=== PATIENT | female | born 1950 | race Caucasian/White ===

== ENCOUNTER → 2017-05-09 | Outpatient (CLI) | payer OTHER ==
--- NOTE | 2017-05-09 11:15 | DIAGNOSTIC IMAGING REPORT ---
R SHOULDER MIN 2 VIEWS CLINICAL HISTORY: 66 years-old Female presenting with RIGHT SHOULDER INJURY 2 months ago, pain. TECHNIQUE: Frontal, transscapular Y, and axillary views of the right shoulder were obtained. COMPARISON: None. FINDINGS: Two small ovoid densities project over the proximal humeral metaphysis, likely bone islands. Additional ovoid densities inferior to the coracoid process are indeterminant and may represent loose bodies versus bone islands. Irregularity of the rotator cuff footplate at the greater tuberosity likely indicates chronic rotator cuff impingement. Glenohumeral and acromioclavicular joints congruent. No acute fracture or malalignment. Mild osteophytosis at the glenohumeral joint. Normal morphology of the acromion process.. IMPRESSION: 1. No acute osseous injury of the right shoulder. 2. Loose bodies versus bone islands in the subcoracoid region. 3. Findings suggest chronic rotator cuff impingement. 4. Mild degenerative changes of the glenohumeral joint. Electronically signed by: Dorian Walton M.D. 05/09/2017 11:14 AM Dictated Date/Time: 05/09/2017 11:11 AM
== END | disposition home or self-care (01) ==
LOC: C.RDSM 10:53
PROVIDERS: ATTEND Family Medicine
DX: M25.519 Pain in unspecified shoulder (principal)

== ENCOUNTER → 2017-10-09 | Outpatient (CLI) | payer OTHER ==
--- NOTE | 2017-10-09 08:04 | DIAGNOSTIC IMAGING REPORT ---
R UPPER EXT JOINT WITHOUT CLINICAL HISTORY: 67 years-old Female presenting with RIGHT SHOULDER PAIN, limited range of motion, ongoing pain for 6 months, history of 2 injections comp injury while lifting. TECHNIQUE: Multisequence, multiplanar MR imaging of the right shoulder was performed without the use of intravenous contrast. IV contrast: None. COMPARISON: Plain radiographs from 05/09/2017. FINDINGS: Localizer images: Unremarkable. Bone marrow: Extensive subchondral cystic change in the glenoid fossa. Cystic change also noted near the insertional footplate of the supraspinatus tendon likely indicating chronic impingement. Articular cartilage: Full-thickness cartilage loss of the glenoid fossa most pronounced centrally and at the superior aspect. The apposing articular cartilage of the humeral head demonstrates cartilage loss at the periphery, where there is osteophytosis most pronounced inferiorly. Labrum: Increased signal intensity and blunting of the posterior labrum consistent with chronic degeneration. No focal labral tear. Biceps and triceps tendons: Linear fluid signal intensity undermines a portion of the the long head of the biceps labral complex (series 10 image 9), consistent with partial tear. The remainder of the tendon is intact. Short head of the biceps tendon intact. Long head of the triceps tendon intact. Rotator cuff: Increased signal intensity of the critical zone of the supraspinatus tendon predominantly anteriorly consistent with tendinosis. There is also partial bursal surface tear suspected in the critical zone-myotendinous junction (series 10 image 10). This is less than 50% thickness. Partial undersurface tear of the insertional fibers of the infraspinatus suspected (series 10 image 13). Teres minor tendon intact. Increased signal intensity of proximal fibers of the subscapularis tendon consistent with tendinosis. Transverse ligament portion of the subscapularis tendon intact. Acromioclavicular joint: Hypertrophic degenerative changes of the acromioclavicular joint. No fluid within the joint. Flat to concave undersurface of the acromion process. Shoulder joint effusion: Small shoulder joint effusion with loose bodies evident inferior and medial to the humeral head (series 10 image 12). Loose bodies also noted in the subcoracoid recess (series 10 image 6). Trace fluid in the subacromial subdeltoid bursa. Muscle: Normal muscle bulk and muscle signal intensity. Superficial soft tissue: No subcutaneous edema. IMPRESSION: 1. Findings consistent with advanced degenerative change characteristic of osseous arthritis affecting both the glenohumeral and acromioclavicular joints. Multiple loose bodies in the glenohumeral joint, which has a small joint effusion. 2. Tendinosis of the supraspinatus and subscapularis. Additionally, partial bursal surface tear of the supraspinatus and partial undersurface tear of the infraspinatus as above. 3. Degenerative changes of the labrum as above. Electronically signed by: Dorian Walton M.D. 10/09/2017 8:03 AM Dictated Date/Time: 10/09/2017 7:47 AM
== END | disposition home or self-care (01) ==
LOC: C.MRIBC 06:45
PROVIDERS: ATTEND Orthopaedic Surgery Sports Medicine
DX: M75.41 Impingement syndrome of right shoulder (principal); M19.011 Primary osteoarthritis, right shoulder; M24.011 Loose body in right shoulder; M25.411 Effusion, right shoulder; M75.81 Other shoulder lesions, right shoulder

== ENCOUNTER 2023-01-14 09:01 | Observation (INO) ==
--- NOTE | 2022-12-23 14:56 | PAT Medication Instructions ---
Medication Instructions Date of Service December 23, 2022 Home Medications Medication Instructions Recorded azelastine 137 mcg (0.1 %) nasal 2 spray intranasal BID PRN itching 12/11/20 spray aerosol #30 mL sumatriptan succinate 50 mg tablet (Imitrex) 1 dose PO UD PRN Migraine Headache alendronate 70 mg tablet 70 mg PO .COMPLEX ascorbic acid (vitamin C) 1 dose PO DAILY PRN Cold Symptoms fluticasone propionate 50 mcg/actuation nasal spray,suspension 1 spray intranasal BID zinc gluconate-vitamin C [zinc] 1 dose PO DAILY PRN Cold Symptoms azelastine 137 mcg (0.1 %) nasal spray aerosol 2 spray intranasal BID PRN itc reid cetirizine 10 mg tablet 10 mg PO DAILY PRN Allergy Symptoms Continue as directed sumatriptan succinate 50 mg tablet (Imitrex) 1 dose PO UD PRN Migraine Headache (if needed) alendronate 70 mg tablet 70 mg PO .COMPLEX (just do not take on morning of surgery) DO NOT take the morning of surgery ascorbic acid (vitamin C) 1 dose PO DAILY PRN Cold Symptoms (if needed) zinc gluconate-vitamin C [zinc] 1 dose PO DAILY PRN Cold Symptoms cetirizine 10 mg tablet 10 mg PO DAILY PRN Allergy Symptoms Take morning of surgery With a small sip of water, OTHERWISE NOTHING TO EAT OR DRINK AFTER MIDNIGHT: fluticasone propionate 50 mcg/actuation nasal spray,suspension 1 spray intranasal BID azelastine 137 mcg (0.1 %) nasal spray aerosol 2 spray intranasal BID PRN itching (if needed) Take evening before surgery ascorbic acid (vitamin C) 1 dose PO DAILY PRN Cold Symptoms (if needed) fluticasone propionate 50 mcg/actuation nasal spray,suspension 1 spray intranasal BID zinc gluconate-vitamin C [zinc] 1 dose PO DAILY PRN Cold Symptoms (if needed) azelastine 137 mcg (0.1 %) nasal spray aerosol 2 spray intranasal BID PRN itching (if needed) cetirizine 10 mg tablet 10 mg PO DAILY PRN Allergy Symptoms (if needed) Other Notes If you have any questions please call us at [phone] or [phone] or [phone] or [phone]
--- NOTE | 2022-12-30 11:02 | Anesthesiology Consultation ---
Date of Service December 30, 2022 Assessment & Plan (1) Encounter for pre-operative examination: Chart Review Chart Review: Acceptable Risk for Surgery (pending response from PCP re: CXR results ) and Patient seen in Pre Admission Testing - Please send note to PCP re: abnormal chest x ray- need response (Dr. Yuko Davila) Pt currently scheduled as 23 hours observation. If surgeon decides to change patient to Same Day Joint, patient would be acceptable risk for ALISHA, pending patient is motivated, has good support and surgeon's office completes [facility] Day [facility] Program preop requirements. Per PAT appt on 12/30/22, no recent illness/disease exposures, illness related symptoms, or recent illness/disease positive tests. Will leave to surgeon's discretion if preop Covid testing needed Right shoulder arthroscopy, biceps tenotomy, subacromial decompression 04/03/18= Done under [facility] with LMA #4. Atraumatic attempt x 1 Teaching & Discussion Pre-Anesthesia Teaching/Discussion Notes: Instructed NPO after midnight before surgery,except medications with 15 cc of water. Medication instructions provided according to the PAT guidelines. History Surgery Operation Date: 01/14/23 10:40 Proposed Procedures p Right Total Hip Arthroplasty - Al Helms MD Height/Weight Height: 4 ft 11 in Weight: 43.1 kg Allergies Allergy/AdvReac Type Severity Reaction Status Date / Time No Known Drug Allergies Allergy Unknown Verified 12/23/22 10:05 Medications Home Medications Medication Instructions Recorded Confirmed Last Taken sumatriptan succinate 50 mg tablet 1 dose PO UD PRN Migraine Headache 03/19/18 12/23/22 Unknown (Imitrex) alendronate 70 mg tablet 70 mg PO .COMPLEX 05/05/20 12/23/22 Unknown ascorbic acid (vitamin C) 1 dose PO DAILY PRN Cold Symptoms 05/05/20 12/23/22 Unknown fluticasone propionate 50 1 spray intranasal BID 05/05/20 12/23/22 Unknown mcg/actuation nasal spray,suspension zinc gluconate-vitamin C [zinc] 1 dose PO DAILY PRN Cold Symptoms 05/05/20 12/23/22 Unknown azelastine 137 mcg (0.1 %) nasal 2 spray intranasal BID PRN itching 12/11/20 12/23/22 Unknown spray aerosol #30 mL cetirizine 10 mg tablet 10 mg PO DAILY PRN Allergy Symptoms 07/23/22 12/23/22 Unknown Past Medical History Medical History Osteoporosis Bilateral hip joint arthritis Osteoarthritis Migraine Exercise / Class Metabolic Activity II 4-5 Yardwork/Stairs/Walk up hill (one flight of stairs- no chest pain or SOB ) Past Family History Family History Father Family hx of colon cancer Mother Hearing loss Heart disease Cancer Stroke Sister Hearing loss Cancer Asthma Other No family history of adverse response to anesthesia No family history of allergies No family history of bleeding disorder Denies family history of Hypertension Past Surgical History Surgical History History of knee surgery Waters's cysts History of repair of rotator cuff RIGHT History of appendectomy History of colonoscopy History of tonsillectomy Past Anesthesia History No Hx of Anesthesia Complications (with exception to ether- severe PONV ) and No Family Hx of Anesthesia Complications History of PONV No Hx of Motion Sickness and History of PONV (only with ether ) Social History Smoking Status: Former smoker tobacco type: cigarettes Do You Dip or Chew Tobacco: No Smoking End Date: years ago Hx Alcohol Use: No Hx Substance Use: No substance use type: does not use Review of Systems - Left chest twinge - x few weeks. No triggers. Lasts seconds. Occurs once week. No SOB or nausea. No radiation. Feels related to shoulder. Discussed with Dr. Powers- symptoms are not cardiac in nature. Pt can proceed as scheduled (patient educated to call if symptoms occur again) Patient denies shortness of breath, dyspnea on exertion, reflux, cough, wheezing, palpitations. No hx of seizures, stroke, AK, apnea/snoring. No hx of blood clots or blood transfusions Physical Exam Vital Signs VITALS BP 144/75 P 77 TEMP 98.3 SP02 97% RESP 16 Constitutional no acute distress ENMT Mouth: no TMJ clicking Thyromental Distance: < 3.5 Finger Breadths (3.0) Mallampati Class: III Missing side tooth Permanent right side implant Neck + limited neck extension (mild) Respiratory normal respiratory effort; no respiratory distress Auscultation: lungs clear to auscultation bilaterally; no wheezes Cardiovascular Rate/Rhythm: regular rate and regular rhythm Heart Sounds: no murmur Vessels: no carotid bruit Musculoskeletal Spine: no pain with cervical ROM Extremities: extremities normal to inspection Psychiatric Orientation: alert Lab Results Anesthesia Preop Results Results Anesthesia Widget: WBC 8.21 K/ul (4.8-10.8) 12/30/22 Hgb 12.9 g/dl (12.0-16.0) 12/30/22 Hct 39.0 % (37.0-47.0) 12/30/22 Plt 292 K/uL (130-400) 12/30/22 Na 139 mmol/L (136-145) 12/30/22 K 3.4 mmol/L (3.5-5.1) L 12/30/22 Cl 106 mmol/L (98-107) 12/30/22 CO2 27 mmol/L (21-32) 12/30/22 BUN 16 mg/dl (6-23) 12/30/22 Creat 0.87 mg/dl (0.6-1.2) 12/30/22 Glucose Level 120 mg/dl (70-99(Fasting)) H 12/30/22 PT 10.9 Seconds (9.0-12.0) 12/30/22 PTT 26.4 Seconds (21.0-31.0) 12/30/22 INR 1.0 (0.9-1.1) 12/30/22 Blood Type B Positive 12/30/22 Antibody Screen NEGATIVE 12/30/22 Testing Electrocardiogram Date: 12/30/22 Findings: + NSR @ (71bpm ) Normal EKG per cardio Chest X-Ray Date: 12/30/22 FINDINGS: Mild S-shaped scoliosis of the thoracolumbar spine. The heart is normal in size. The left lung is clear. Degenerative changes noted within the shoulders. There is 1.3 cm nodular density within the right lower lung zone. This appears to be calcified and may be secondary to the overlying calcified rib cartilage. Otherwise, lungs are clear. No evidence for pulmonary edema. IMPRESSION: 1. No acute process within the chest. 2. There is 1.3 cm nodular density within the right lower lung zone. This appears to be calcified and may be secondary to the overlying calcified rib cartilage. However, follow-up chest CT recommended for confirmation and to exclude the less likely possibility of a pulmonary nodule. 3. This report was called/faxed to the referring physician following dictation. (Will send optimization note to PCP)
--- NOTE | 2023-01-11 09:46 | History & Physical Report ---
Date of Service January 11, 2023 Assessment & Plan (1) Bilateral hip joint arthritis: 72-year-old female quite healthy with some underlying osteoporosis with several years of bilateral lower extremity pain with a significant underlying hip and knee arthritis. Is always difficult call to make as far as managing which problem first. Looking at her x-rays and her exam I think it is best to approach her hip first. After extensive discussion regarding proceed with a right hip replacement. Hopefully this will help her knee pain. She is got significant osteoporosis we will likely use a cemented stem. The risks Mente this procedure explained. She is aware she may need knee surgery in the future. We are more able to Treat that conservatively with intermittent injections as well. The risks Mente of total hip replacement were explained and she understands and desires to proceed informed consent was obtained. (2) Right knee DJD: History of Present Illness Chief Complaint: . Bilateral lower leg and lower extremity pain right side worse than the left. Primary Care Provider: Yuko Davila MD . Patient is a 72-year-old female who presents for follow-up of her bilateral lower extremity pain discomfort. Discussed several year history of increasing bilateral leg pain and discomfort. She has been seen by multiple physicians over the years including Dr. Abraham, Dr. Osorio, Dr. Belle and then myself. She been treated for both hip and knee arthritis. She describes most severely thigh pain and discomfort. The right side is worse than the left. She had injections in the knee which helped somewhat. She limps when she walks. She really did like to get some relief. She is becoming more debilitated by the pain. The patient does have a pretty significant history of osteoporosis and managed with medical management. Her preoperative work-up she did have a questionable nodule on the chest x-ray. She is scheduled for a CT scan follow-up. This was not felt to alter her surgical treatment. Allergies Allergy/AdvReac Type Severity Reaction Status Date / Time No Known Drug Allergies Allergy Unknown Verified 12/23/22 10:05 Home Medications Medication Instructions Recorded Confirmed Type sumatriptan succinate 50 mg tablet 1 dose PO UD PRN Migraine Headache 03/19/18 12/23/22 History (Imitrex) alendronate 70 mg tablet 70 mg PO .COMPLEX 05/05/20 12/23/22 History ascorbic acid (vitamin C) 1 dose PO DAILY PRN Cold Symptoms 05/05/20 12/23/22 History fluticasone propionate 50 1 spray intranasal BID 05/05/20 12/23/22 History mcg/actuation nasal spray,suspension zinc gluconate-vitamin C [zinc] 1 dose PO DAILY PRN Cold Symptoms 05/05/20 12/23/22 History azelastine 137 mcg (0.1 %) nasal 2 spray intranasal BID PRN itching 12/11/20 12/23/22 Rx spray aerosol #30 mL cetirizine 10 mg tablet 10 mg PO DAILY PRN Allergy Symptoms 07/23/22 12/23/22 History Past Med/Surg History Medical History Osteoporosis Bilateral hip joint arthritis Osteoarthritis Migraine Surgical History History of knee surgery Waters's cysts History of repair of rotator cuff RIGHT History of appendectomy History of colonoscopy History of tonsillectomy Family History Father Family hx of colon cancer Mother Hearing loss Heart disease Cancer Stroke Sister Hearing loss Cancer Asthma Other No family history of adverse response to anesthesia No family history of allergies No family history of bleeding disorder Denies family history of Hypertension Social History Smoking Status: Former smoker Tobacco Type: Cigarettes Smoking End Date: years ago; Second Hand Exposure: No; Do You Dip or Chew Tobacco: No; Tobacco Cessation Education Requested by Patient: No Hx Alcohol Use: No Hx Substance Use: No Preferred Language: [place] Communication Ability: Effective 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 Physical Exam . Physical examination reveals a pleasant [place] female. She looks to be in pretty good health. Examination of the lower extremities reveal patient walks with slightly antalgic gait. Examination of the right leg reveals thin soft tissue envelope he is got valgus alignment to her knee. A small knee effusion. She does have a stiff hip with internal rotation in neutral. This recreates pain. Negative straight leg raise. Examination left knee reveals no obvious deformity. Skin and soft tissue envelope. She also has pain and stiffness with hip motion on the side. Small knee effusion. Neurologically intact. Constitutional WD/WN, vitals as above Respiratory normal respiratory effort, lungs clear to auscultation Cardiovascular RRR, no murmur, no edema Gastrointestinal (Abdomen) normal bowel sounds, soft, nontender, no hepatosplenomegaly Results & Data Results & Data Laboratory Results . Diagnostic Findings . X-rays of both hips were reviewed. It shows advanced bilateral hip arthritis. Got fairly concentric disease with cystic changes in the femoral head and acetabulum. Pretty significant osteophyte formation as well. The right side is a bit worse than the left. X-rays of the knee from previously reviewed. It shows some moderate knee DJD. She is got near complete loss of the lateral joint space. PG Care Time/CCT Total # of Minutes Spent Total Time Spent with Patient: Total time spent is greater than 50% in coordination of care (as documented) at patient's floor/unit and/or counseling patient: Coding Level of Care Code None Diagnoses Bilateral hip joint arthritis M16.0 Right knee DJD M17.11
[~2023-01-14 09:01] MED LIST: ACETAMINOPHEN 500 MG TAB PO SCH; BUPIVACAINE 0.5 % 5 MG/1 ML PF 10ML VIAL ONE; CeleBREX 200 MG CAP PO SCH; FAMOTIDINE 20 MG TAB PO SCH; LR 500ML BOLUS, THEN 15ML/HR IV SCH; LR 60ML/HR IV SCH; METOCLOPRAMIDE HCL 10 MG TABLET PO SCH; TRANEXAMIC ACID 1,000 MG **IV Pre-op IV SCH; ceFAZolin 2000MG 2,000 MG/15 ML SYR IV SCH; dexAMETHasone**PF** 10 MG/ML VIAL IV SCH
--- NOTE | 2023-01-14 09:18 | History & Physical Bridge Note ---
Date of Service January 14, 2023 History & Physical Bridge Note I have examined the patient, reviewed the History & Physical and in the interval since the performance of the History & Physical I have noted the following changes of clinical significance: no changes noted
[2023-01-14] MEDS ORDERED: ONDANSETRON INJ 2 MG/ML 2 ML VIAL IV PRN ×2 (09:22→12:12)
[2023-01-14] MEDS ORDERED: ATROPINE SULFATE 0.1 MG/ML 10ML SYR IV PRN (09:22)
[2023-01-14] MEDS ORDERED: ePHEDrine sulfate 50 MG/ML AMP IV PRN ×2 (09:22→12:12)
[2023-01-14] MEDS ORDERED: fentaNYL citrate PF 100 MCG/2 ML VIAL IV PRN (09:22)
[2023-01-14] MEDS ORDERED: MIDAZOLAM HCL 1 MG/ML 2ML VIAL ONE (09:57)
[2023-01-14] MEDS ORDERED: fentaNYL citrate PF 100 MCG/2 ML VIAL ONE (09:57)
[2023-01-14] MEDS ORDERED: ONDANSETRON INJ 2 MG/ML 2 ML VIAL ONE (10:00)
[2023-01-14] MEDS ORDERED: PROPOFOL IV EMULSION 10 MG/ML 20 ML VIAL IV ONE (10:00)
[2023-01-14] MEDS ORDERED: MoRPHine SULFATE PF 1 MG/ML 10 ML AMP/VIAL ONE (10:48)
[2023-01-14] MEDS ORDERED: BUPIVACAINE/EPINEPHRINE 0.5% MPF 1:200,000 30 ML VIAL ONE (11:19)
[2023-01-14] MEDS ORDERED: ePHEDrine sulfate 50 MG/ML AMP ONE (11:56)
[2023-01-14] MEDS ORDERED: NALBUPHINE HCL 5 MG in SYRINGE 0 ML IV PRN (12:12)
[2023-01-14] MEDS ORDERED: MEPERIDINE HCL 25 MG/ML CARP/VIAL IV PRN (12:12)
[2023-01-14] MEDS ORDERED: diphenhydrAMINE 50 MG/ML VIAL IV PRN (12:12)
[2023-01-14] MEDS ORDERED: NALOXONE HCL 0.4 MG/1 ML VIAL/CARP IV PRN (12:12)
[2023-01-14] MEDS ORDERED: LACTATED RINGER'S 500 ML IV PRN (12:12)
[2023-01-14] MEDS ORDERED: MoRPHine SULFATE PF 1 MG/ML 10 ML AMP/VIAL INT SPINAL ONE (12:12)
[2023-01-14] MEDS ORDERED: NALOXONE HCL 0.08 MG in SYRINGE 1.8 ML IV PRN (12:12)
[2023-01-14] MEDS ORDERED: NALOXONE HCL 1 MG in SODIUM CHLORIDE 0.9% 1,000 ML IV PRN (12:12)
[2023-01-14] MEDS ORDERED: DC INTRASPINAL MORPHINE SCH (12:15)
[2023-01-14] MEDS ORDERED: SODIUM CHLORIDE 0.9% 1,000 ML IV SCH (12:15)
[2023-01-14] MEDS ORDERED: NO NARCOTICS OR SEDATIVES SCH (12:15)
--- NOTE | 2023-01-14 13:33 | Operative Report ---
PG Post Operative Report Pre & Post Diagnosis Operation Date: 01/14/23 10:40 Pre-Op Diagnosis: Right Hip Advanced Degenerative Joint Disease Post-Op Diagnosis: Right Hip Advanced Degenerative Joint Disease I identified the patient and participated in the time-out.: Yes Procedure Operation Date: 01/14/23 10:40 Actual Procedures p Right Total Hip Arthroplasty, Cemented(Right) - Al Helms MD Surgeon Al Helms MD Technician Trainee Augustin Macedo PA-C Estimated Blood Loss 100 Findings Consistent with Post-Op Diagnosis Operative findings were advanced right hip DJD. 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 She had eburnation of both bone surfaces. She had a lot of osteophytes around the femoral head and neck area. Fairly stiff hip. Specimens Right femoral head sent for pathology Anesthesia Type Spinal MAC Complications none Disposition Accompanied Patient To Recovery: No Indications Patient is a 72-year-old female is having a several year history of increasing bilateral hip and knee pain discomfort and stiffness in multiple joints. She been through extensive conservative treatment which became less successful over time. Become more debilitated by her pain. Her hip arthritis seemed a bit worse than her knee arthritis. Day and she elected proceed with right total hip arthroplasty. Description of Procedure Operative implants consist of: 1 Biomet G7 size 50 mm acetabular shell. 2. Martin hole eliminator. 3. 6.5 cancellous acetabular screws 1 at 35 mm length by 30 mm length. 4. Highly cross-linked polyethylene liner with a 50 mm outer diam and 36 mm inner diameter. 5. DePuy [place] size 3 standard cemented femoral stem. 6. +5/36 mm ceramic articular ball. The patient was taken to the operating, identified, and placed on the operating table in the supine position. All contractors were appropriately padded. IV antibiotics tried by anesthesia team. A spinal anesthetic and been implemented holding area. A Hutchison catheter was placed in sterile fashion. The patient then placed in the left lateral decubitus position. An axillary roll was placed. A Stulberg hip positioner was used for positioning. The right hip and leg were then prepped and draped in usual sterile fashion. A posterolateral approach of the right hip was then performed to a curvilinear incision centered over the greater trochanter. Sharp dissection was carried through subcutaneous tissue down below the IT band gluteal fascia. The IT band gluteal fascia incised longitudinally in line with skin incision. The underlying greater bursa was excised. The piriformis and external rotators along with the posterior hip joint capsule were then released from the posterior aspect the hip as a single layer. Great care was taken throughout the procedure protect the sciatic nerve at all times. The hip was internally rotated and dislocated. A femoral neck osteotomy cut was made with Final Cut about 14 mm above the lesser trochanter. Femoral head was removed and sent for pathology. The femur was retracted anteriorly. Attention drawn the acetabulum. The acetabular labrum was excised. The pulmonary fat was excised. Sequential reaming the acetabulum was then performed again with a size 43 and progressing up to 49. Reamed a little bit with a 50 reamer and then placed a 50 mm Biomet G7 acetabular shell in about 40 degrees lateral opening and 20 degrees of anteversion. It was fixed with two 6.5 cancellous acetabular screws. A trial liner was placed. Attention drawn the femur. Proximal femur was then with a [employer] cutter followed by a canal finder and lateralizing reamer. I then broached beginning with size with a 1 and progressing up to a 3. Which she got pretty good fit of the 3. Her bone was very osteopenic and I did not want to potentially sacrifice the bone by broaching anymore. We trialed the hip and the hip was fully stable with a +5 articular ball. Was fully stable in full extension and external rotation and flexion to 90 degrees internal Tatian over 60 degrees. Leg lengths appeared equal. May have like this leg a little bit due to her hip arthritis but she is going to need to her other hip done in the future as well. Attention drawn to place the permanent components. All trial components removed. A bone plug was placed in the distal femur plate a highly cross-linked polyethylene liner was placed. A double batch [place] G cement was mixed and injected in the canal. A size 3 [place] standard 6 cemented femoral stem was then placed. It was held till cement hardened. A +5/36 mm ceramic articular ball was placed. The hip was located and once again found to be stable. Attention drawn to closing. The wounds irrigated cosigns pulsatile lavage solution. We did inject locally with 50 cc of half percent Marcaine with epinephrine. The posterior capsule and external rotators were then repaired through drill holes in the posterior trochanter as a single layer with #2 Ethibond suture. The IT band gluteal fascia then closed in 1 PDS suture in a running fashion. Subcutaneous tissue then closed with 2 layers the deep layer and #1 Vicryl suture in the subc utaneous tissue with 2-0 Dexon suture in a buried interrupted fashion the skin was closed skin shawnee. Leg was then cleaned and dried and sterile dressing was Xeroform, 4 fours, ABD pad, foam tape was applied. Patient then transferred to the recovery room in stable condition. Patient tolerated the procedure well and there were no complications. Alcon Macedo, my physician assistant health educator, was present for the entire procedure. His assistance was required for proper patient positioning, prepping and draping, surgical exposure, retraction, perform the technical details of the operation, placement implants, closure of the incision site and placement of sterile bandage. I attest to the content of the Intraoperative Record and any orders documented therein. Any exceptions are noted below.
--- NOTE | 2023-01-14 13:55 | XRay Report ---
AP PELVIS, CROSSTABLE LATERAL RIGHT HIP History: Right total hip arthroplasty. Degenerative arthritis. Postop. FINDINGS: The patient is status post a right total hip arthroplasty. The hardware is intact. No fract ure or dislocation. Skin shawnee are in place. IMPRESSION: Right total hip arthroplasty. No evidence for hardware complication ACT 112: Negative or not required by law. Electronically signed by: Dillon Torres M.D. 01/14/2023 1:53 PM
--- NOTE | 2023-01-14 14:34 | Anesthesiology Progress Note ---
Date of Service January 14, 2023 Anesthesia Post Procedure Vital Signs Vital Signs: Temp Pulse Pulse Resp BP Pulse Ox O2 Del Method 01/14/23 14:15 92 H 16 121/66 99 Room Air 01/14/23 14:00 36.4 C L 86 12 119/67 97 Room Air 01/14/23 13:50 90 18 114/57 L 97 Room Air 01/14/23 13:40 91 H 19 110/62 100 Room Air 01/14/23 13:30 91 H 20 129/60 97 Room Air 01/14/23 13:22 36.3 C L 90 18 125/64 97 Room Air 01/14/23 09:30 36.6 C 69 18 143/78 H 98 Room Air Transfer of Care Handoff Completed per policy Notes Mental Status: alert / awake / arousable and participated in evaluation Patient Amnestic to Procedure: Yes Nausea / Vomiting: adequately controlled Pain: adequately controlled Airway Patency, RR, SpO2: stable & adequate BP & HR: stable & adequate Hydration State: stable & adequate Neuraxial Anesthesia: was administered and sensory block is resolving Anesthetic Complications: no major complications apparent and Pt Satisfied with anesthetic care
[2023-01-14] MEDS ORDERED: SUMAtriptan succinate 50 MG TAB PO PRN (14:59)
[2023-01-14] MEDS ORDERED: AZELASTINE HCL 0.1% NASAL 200 SPRAYS/27,400 MCG BTL NAE PRN (14:59)
[2023-01-14] MEDS ORDERED: ACETAMINOPHEN 500 MG TAB PO SCH (14:59)
[2023-01-14] MEDS ORDERED: CETIRIZINE HCL 10 MG TABLET PO PRN (14:59)
[2023-01-14] MEDS ORDERED: METOCLOPRAMIDE HCL INJ 5 MG/ML 2 ML VIAL IV PRN (14:59)
[2023-01-14] MEDS ORDERED: ASCORBIC ACID PO PRN (14:59)
[2023-01-14] MEDS ORDERED: ZINC GLUCONATE VITAMIN C PO PRN (14:59)
[2023-01-14] MEDS ORDERED: bisacodyL 10 MG SUPP PR PRN (14:59)
[2023-01-14] MEDS ORDERED: MAGNESIUM HYDROXIDE SUSP 30 ML UDC PO PRN (14:59)
[2023-01-14] MEDS ORDERED: ALUMINUM/MAGNESIUM SUSP 30 ML UDC PO PRN (14:59)
[2023-01-14] MEDS: SODIUM CHLORIDE 0.9% 1,000 ML IV SCH (15:39)
[2023-01-14] MEDS: ASCORBIC ACID 500 MG TAB PO SCH (16:41)
[2023-01-14] MEDS: ACETAMINOPHEN 500 MG TAB PO SCH ×2 (16:42→23:28)
[2023-01-14] MEDS: KETOROLAC TROMETHAMINE 15 MG/ML VIAL IV SCH ×2 (16:42→23:27)
[2023-01-14] MEDS ORDERED: TRANEXAMIC ACID / 0.7% NACL 1,000 MG/100 ML BAG IV SCH (19:30)
[2023-01-14] MEDS: ceFAZolin 1000MG 1,000 MG/7.5 ML SYR IV SCH (20:46)
[2023-01-14] MEDS: FLUTICASONE PROPIONATE NA SPR 16 GM BTL NAE SCH (20:46)
[2023-01-14] MEDS ORDERED: SENNA 8.6 MG TAB PO SCH ×2 (21:00)
[2023-01-14] MEDS: ASPIRIN 81 MG ECTAB PO SCH (21:53)
[2023-01-14] MEDS: DOCUSATE SODIUM 100 MG CAP PO SCH (21:53)
[2023-01-15] MEDS: SODIUM CHLORIDE 0.9% 1,000 ML IV SCH (02:13)
[2023-01-15] MEDS: ceFAZolin 1000MG 1,000 MG/7.5 ML SYR IV SCH (03:54)
[2023-01-15] MEDS: KETOROLAC TROMETHAMINE 15 MG/ML VIAL IV SCH ×2 (03:54→11:29)
[2023-01-15] MEDS ORDERED: traMADol HCL 50 MG TABLET PO PRN (06:12)
[2023-01-15] MEDS ORDERED: HYDROmorphone INJ 0.5 MG/0.5 ML SYR IV PRN (06:12)
[2023-01-15] MEDS ORDERED: ONDANSETRON INJ 2 MG/ML 2 ML VIAL IV PRN (06:12)
[2023-01-15] MEDS ORDERED: NALOXONE HCL 0.4 MG/1 ML VIAL/CARP IV PRN (06:12)
[2023-01-15 06:21] LABS: Basophils # (auto) 0.01 K/uL (0.00-0.20); Basophils % (auto) 0.1 %; Eosinophils # (auto) 0.01 K/uL (0.00-0.50); Eosinophils % (auto) 0.1 %; Hematocrit (blood only) 29.7 % (37.0-47.0); Hemoglobin 10.1 g/dl (12.0-16.0); Immature Granulocytes # (auto) 0.09 K/uL (0.01-0.20); Immature Granulocytes % (auto) 0.6 %; Lymphocytes # (auto) 1.49 K/uL (1.20-3.40); Lymphocytes % (auto) 9.6 %; Mean Corpuscular Hemoglobin 29.4 pg (25.0-34.0); Mean Corpuscular Volume 86.6 fL (80.0-100.0); Mean Platelet Volume 10.2 fL (9.4-12.4); Monocytes % (auto) 6.4 %; Neutrophils # (auto) 12.93 K/uL (1.40-6.50); Neutrophils % (auto) 83.2 %; Platelet Count 250 K/uL (130-400); RDW Coefficient of Variation 13.9 % (11.5-14.5); RDW Standard Deviation 43.9 fL (36.4-46.3); Red Blood Count 3.43 M/uL (4.20-5.40); White Blood Count 15.53 K/ul (4.8-10.8)
[2023-01-15 06:34] LABS: BUN Creatinine Ratio 18.3 (10-20); Creatinine Clr Calc Pharmacy 48.4 ml/min; Est GFR (African American) 98.6 ml/min; Est GFR (Non-African American) 85.1 ml/min; Potassium 3.6 mmol/L (3.5-5.1)
[2023-01-15] MEDS: ASCORBIC ACID 500 MG TAB PO SCH (07:14)
[2023-01-15] MEDS: ACETAMINOPHEN 500 MG TAB PO SCH (07:14)
[2023-01-15] MEDS ORDERED: dexAMETHasone 10 MG in SYRINGE 0 ML IV SCH (08:00)
[2023-01-15] MEDS: ASPIRIN 81 MG ECTAB PO SCH (08:36)
[2023-01-15] MEDS: DOCUSATE SODIUM 100 MG CAP PO SCH (08:37)
[2023-01-15] MEDS: FLUTICASONE PROPIONATE NA SPR 16 GM BTL NAE SCH (08:38)
[2023-01-15] MEDS ORDERED: MULTIVITAMIN TAB PO SCH (09:00)
--- NOTE | 2023-01-15 12:02 | Surgery Progress Note ---
Date of Service January 15, 2023 Assessment & Plan (1) Status post right hip replacement: Plan: 72-year-old female postop day 1 from a right hyper total hip replacement. She is doing quite well. Therapy went well. Hoping to go home. Plan: 1. DVT prophylaxis including thigh-high teds, SCDs, aspirin twice a day. 2. PT/OT. Weight-bear as tolerated. Right total hip protocol. Needs to make a precautions. 3. Pain controlled okay with current pain regimen. 4. Disposition plan to discharge home with some home health and her sister's assistance today Admission and Anticipated Discharge Date Admission Date: January 14, 2023 Subjective 72-year-old female postop day 1 from right cemented hybrid total hip arthroplasty. She is doing quite well. Pain well-controlled. No chest pain or shortness of breath. Not feeling dizzy or lightheaded. Therapy is going well. She can walk in the hallways. Hoping to go home. Physical Exam Physical Exam: Physical examination was a pleasant frail elderly female. I would visit her walking the hallways at this morning. Examination of the right hip reveals the dressing clean dry and intact thigh soft and supple. She can dorsiflex and plantarflex her foot appropriately. She is neurologically intact. ENMT: external ear and nose normal, oropharynx normal Neck: trachea midline, no thyromegaly Respiratory: normal respiratory effort, lungs clear to auscultation Cardiovascular: RRR, no murmur, no edema Gastrointestinal (Abdomen): normal bowel sounds, soft, nontender, no hepatosplenomegaly Results & Data Vital Signs (Past 12 Hours) Vital Signs Temp Pulse Resp BP Pulse Ox O2 Del Method 01/15/23 07:02 36.6 C 65 16 103/61 99 Room Air 01/15/23 06:01 16 98 01/15/23 04:51 16 96 01/15/23 03:52 18 97 01/15/23 03:52 36.4 C L 64 18 98/59 L 97 Room Air 01/15/23 02:35 14 96 01/15/23 01:30 16 96 01/15/23 00:29 16 93 Laboratory Results Hemoglobin is 10.1. Hematocrit is 29.7. Electrolytes are stable. PG Care Time/CCT Total # of Minutes Spent Total Time Spent with Patient: Total time spent is greater than 50% in coordination of care (as documented) at patient's floor/unit and/or counseling patient: Coding Level of Care Code None Diagnoses Status post right hip replacement Z96.641
== END 2023-01-15 12:21 | disposition home health service (06) ==
LOC: ASU 09:01 → 3E 09:01